=== PATIENT | female | born 1945 | race Caucasian/White ===

== ENCOUNTER 2017-03-06 16:51 | Inpatient (IN) | payer OTHER, MEDICAID ==
--- NOTE | 2017-03-06 17:23 | DR.H&P ---
H&P - History & Physical for Day of: H&P Date: 03/06/17 - Chief Complaint Chief Complaint: urinary retention, uti, fever, weakness, nausea - Allergies Allergies/Adverse Reactions: Allergies Allergy/AdvReac Type Severity Reaction Status Date / Time Codeine [Codeine] Allergy Verified 09/27/15 16:17 - History of Present Illness History of Present Illness: ppatient is a 71-year-old white female who is a very demented from Dr. Macdonald's office. Patient was treated for UTI approximately 2 weeks ago. Patient was told she had an obstruction to her right kidney. Patient was referred to a urologist she has not seen a specialist at this time. Patient states she's had a fever for several days and very weak. Patient has completed 2 rounds of antibiotics by mouth as well as Rocephin injections. plan to admit, iv atbx therapy, ct scan r/o pyelonephritis , admission labs, urine culture,. resume home medication. - Past Medical History Past Medical History: Anxiety, Arthritis, Headaches, Hypertension - Past Surgical History Surgical History: Mastectomy, Ortho Surgery - Family History Family Medical History: Diabetes Mellitus, Cancer, [place], Coronary Artery Disease, Hypertension - Social History Does patient currently use any type of tobacco product: No Have you used tobacco products in the last 12 months: No Type of Tobacco Use: None Does any household member use tobacco: No Alcohol Use: None Drug Use: None - Review of Systems Constitutional: Fever, Weakness Eyes: No Symptoms Reported ENT: No Symptoms Reported Respiratory: No Symptoms Reported Gastrointestinal: Nausea, Abdominal Pain Genitourinary: Retention Skin: No Symptoms Reported Neurological: No Symptoms Reported - Physical Exam Vital Signs: Blood Pressure [Right Arm] 142/79 Blood Pressure 142/79 Oriented: Normal Eyes: Normal Ear: Normal Nose: Normal Throat: Normal Respiratory: Clear Throughout Cardiovascular: Normal : Normal Auscultation: Bowel Sounds: Normal Palpation: Normal Tenderness: Suprapubic Skin: Normal Musculoskeletal: Back:Thoracic, Back:Lumbar Psychiatric: Normal Mood Description: Calm Speech Pattern: Clear, Appropriate - Assessment/Plan (1) UTI (urinary tract infection) Status: Acute Plan: ADMIT, BLOOD AND URINE CULTURES. CBC CMP ON ADMISSION. IV LEVAQUIN, IV NS. CT ABD PELVIS WITH CONTRAST. PAIN AND NAUSEA CONTROL (2) Fever Status: Acute (3) Flank pain Status: Acute (4) GERD (gastroesophageal reflux disease) Qualifiers: Esophagitis presence: esophagitis presence not specified Qualified Code(s) : K21.9 - Gastro-esophageal reflux disease without esophagitis Status: Chronic (5) Generalized anxiety disorder Status: Chronic (6) Hypertension Status: Chronic
[2017-03-06] MEDS ORDERED: LEVAQUIN PREMIX IV 500 MG 500 MG/100 ML BAG IV SCH ×2 (18:15→20:00)
[2017-03-06] MEDS ORDERED: ZOFRAN INJ 4 MG VIAL 16 MG, ATIVAN INJ 2 MG VIAL 1 MG, DECADRON INJ 10 MG in NS 50 ML I... IV PRN (18:15)
[2017-03-06 18:51] LABS: BASOPHILS % (AUTO) 0.3 % (0.2-1.0); EOSINOPHILS # (AUTO) 0.1 x10^3/uL (0.0-0.2); EOSINOPHILS % (AUTO) 1.2 % (0.9-2.9); HEMATOCRIT 36.9 % (36.0-47.0); HEMOGLOBIN 12.4 g/dL (12.0-16.0); LYMPHOCYTES # (AUTO) 1.9 X10^3/uL (1.3-2.9); LYMPHOCYTES % (AUTO) 28.4 % (21.0-51.0); MEAN CORPUSCULAR HGB CONC 33.6 g/dL (33.0-35.0); MEAN CORPUSCULAR VOLUME 89.3 fL (80.0-100.0); MONOCYTES # (AUTO) 0.5 x10^3/uL (0.3-0.8); MONOCYTES % (AUTO) 7.3 % (0.0-13.0); NEUTROPHILS # (AUTO) 4.2 x10^3/uL (2.2-4.8); NEUTROPHILS % (AUTO) 62.8 % (42.0-75.0); PLATELET COUNT 279 X10^3/uL (150.0-450.0); RED BLOOD COUNT 4.13 X10^6/uL (3.5-5.4); RED CELL DISTRIBUTION WIDTH 12.9 % (11.6-16.5); WHITE BLOOD COUNT 6.7 X10^3/uL (3.6-10.0)
[2017-03-06 19:04] LABS: ALBUMIN 3.3 g/dL (3.4-5.0); CALCIUM 9.3 mg/dL (8.5-10.1); COR CA(FOR HYPOALB) 9.9 mg/dL (8.5-10.1); CREATININE 1.31 mg/dL (0.55-1.02); TOTAL PROTEIN 7.3 g/dL (6.4-8.2)
[2017-03-06 20:39] VITALS: BMI 19.4
[2017-03-06] MEDS: NS 1000 ML 1,000 ML IV SCH (20:53)
[2017-03-06] MEDS ORDERED: NS 100 ML IV 100 ML IV ONE (21:53)
--- NOTE | 2017-03-06 22:48 | CT ---
CT abdomen and pelvis with contrast Indication: Urinary tract infection. Fever and right flank pain Technique: Helical images through the abdomen and pelvis after IV and oral contrast. Coronal and sagi ttal reformats provided. Findings: Limited images through the lower chest shows scarring in the lung bases. There is 5 mm left lower lobe lung nodule. 6 mm right lower lobe lung nodule seen on axial image 14. 6 mm right lower l obe nodule seen axial image 19. Calcified breast implants noted. Heart size is normal. Review of bone windows shows no destructive osseous lesion. There is pars defects at L5 with anterolisthesis of L5 with S1. Abdomen: Small right diaphragmatic posterior hernia noted. Mild thickening of the gastric antrum note d. The liver, gallbladder, spleen, pancreas, adrenal glands, and small bowel appear normal. Colonic d iverticulosis noted without acute inflammatory change. Contrast enters the colon without obstruction. Appendix is normal. Vasculature shows minimal plaque. Kidneys show no hydronephrosis or stone. Pelvis: Urinary bladder and rectum are normal. Uterus and adnexa are normal. Impression: 1. No high-grade obstruction renal stones seen. 2. Colonic diverticulosis. 3. Bilateral lung nodules. Nonemergent CT chest recommended for follow-up to further characterize. Ne oplasm cannot be excluded. 4. Mild thickening of the gastric antrum. Correlate clinically for signs of gastritis. Center follow- up with EGD non emergently. Reported By:
[2017-03-06] MEDS: RESTORIL CAP 30 MG PO PRN (23:19)
[2017-03-07 03:08] LABS: BILIRUBIN,URINE NEGATIVE (NEGATIVE); BLOOD/HEMOGLOBIN,URINE NEGATIVE (NEGATIVE); GLUCOSE, URINE NEGATIVE (NEGATIVE); KETONES,URINE NEGATIVE (NEGATIVE); LEUKOCYTE ESTERASE ,URINE 1+ (NEGATIVE); NITRITES,URINE NEGATIVE (NEGATIVE); PROTEIN,URINE NEGATIVE (NEGATIVE); UROBILINOGEN,URINE NORMAL (NORMAL)
[2017-03-07 03:12] LABS: APPEARANCE,URINE CLEAR (CLEAR); BACTERIA,URINE TRACE /HPF (NEGATIVE); COLOR,URINE PALE YELLOW (YELLOW); RBC,URINE NONE SEEN /HPF (NEGATIVE); SQUAMOUS EPITHELIAL CELL,UR RARE /HPF (NEGATIVE)
[2017-03-07 05:24] LABS: BASOPHILS % (AUTO) 0.5 % (0.2-1.0); EOSINOPHILS # (AUTO) 0.1 x10^3/uL (0.0-0.2); EOSINOPHILS % (AUTO) 2.1 % (0.9-2.9); HEMATOCRIT 34.1 % (36.0-47.0); HEMOGLOBIN 11.4 g/dL (12.0-16.0); LYMPHOCYTES # (AUTO) 1.4 X10^3/uL (1.3-2.9); LYMPHOCYTES % (AUTO) 26.3 % (21.0-51.0); MEAN CORPUSCULAR HEMOGLOBIN 29.7 pg (27.0-34.0); MEAN CORPUSCULAR HGB CONC 33.4 g/dL (33.0-35.0); MONOCYTES # (AUTO) 0.5 x10^3/uL (0.3-0.8); MONOCYTES % (AUTO) 9.6 % (0.0-13.0); NEUTROPHILS # (AUTO) 3.4 x10^3/uL (2.2-4.8); NEUTROPHILS % (AUTO) 61.5 % (42.0-75.0); PLATELET COUNT 231 X10^3/uL (150.0-450.0); RED BLOOD COUNT 3.83 X10^6/uL (3.5-5.4); RED CELL DISTRIBUTION WIDTH 12.7 % (11.6-16.5); WHITE BLOOD COUNT 5.5 X10^3/uL (3.6-10.0)
[2017-03-07 05:33] LABS: ALANINE AMINOTRANSFERASE 19 Units/L (12-78); ALBUMIN 2.7 g/dL (3.4-5.0); ALKALINE PHOSPHATASE 59 Units/L (46-116); ASPARTATE AMINO TRANSFERASE 19 Units/L (15-37); BLOOD UREA NITROGEN 16 mg/dL (7-18); CALCIUM 8.5 mg/dL (8.5-10.1); CARBON DIOXIDE 28.1 mmol/L (21-32); CHLORIDE 105 mmol/L (98-107); COR CA(FOR HYPOALB) 9.5 mg/dL (8.5-10.1); CREATININE 1.01 mg/dL (0.55-1.02); SODIUM 141 mmol/L (136-145); TOTAL PROTEIN 6.1 g/dL (6.4-8.2); eGFR BLACK RACES > 60 (>60); eGFR NON BLACK RACES 57 (>60)
[2017-03-07] MEDS: LEVAQUIN PREMIX IV 250 MG 250 MG/50 ML BAG IV SCH (08:37)
[2017-03-07] MEDS: NS 1000 ML 1,000 ML IV SCH ×3 (08:37→21:47)
[2017-03-07] MEDS: PEPCID 20 MG IV PREMIX* 20 MG/50 ML BAG IV SCH (08:37)
[2017-03-07] MEDS: PROTONIX INJ 40 MG VIAL IVP SCH ×2 (09:22→20:48)
[2017-03-07] MEDS ORDERED: DEMEROL INJ IVP PRN (09:56)
[2017-03-07] MEDS ORDERED: TYLENOL 325 MG TAB PO PRN (12:51)
[2017-03-07] MEDS: CLARITIN PO SCH (17:36)
[2017-03-07] MEDS: RESTORIL CAP 30 MG PO PRN (20:48)
[2017-03-08 05:24] LABS: BASOPHILS % (AUTO) 0.3 % (0.2-1.0); EOSINOPHILS # (AUTO) 0.1 x10^3/uL (0.0-0.2); EOSINOPHILS % (AUTO) 1.8 % (0.9-2.9); HEMOGLOBIN 10.7 g/dL (12.0-16.0); LYMPHOCYTES # (AUTO) 1.4 X10^3/uL (1.3-2.9); LYMPHOCYTES % (AUTO) 26.2 % (21.0-51.0); MEAN CORPUSCULAR HEMOGLOBIN 30.1 pg (27.0-34.0); MEAN CORPUSCULAR HGB CONC 33.5 g/dL (33.0-35.0); MEAN CORPUSCULAR VOLUME 89.9 fL (80.0-100.0); MEAN PLATELET VOLUME 8.1 fL (7.4-11.0); MONOCYTES # (AUTO) 0.5 x10^3/uL (0.3-0.8); MONOCYTES % (AUTO) 9.1 % (0.0-13.0); NEUTROPHILS # (AUTO) 3.4 x10^3/uL (2.2-4.8); NEUTROPHILS % (AUTO) 62.6 % (42.0-75.0); PLATELET COUNT 230 X10^3/uL (150.0-450.0); RED BLOOD COUNT 3.56 X10^6/uL (3.5-5.4); RED CELL DISTRIBUTION WIDTH 12.9 % (11.6-16.5); WHITE BLOOD COUNT 5.5 X10^3/uL (3.6-10.0)
[2017-03-08 05:36] LABS: ALANINE AMINOTRANSFERASE 15 Units/L (12-78); ALBUMIN 2.6 g/dL (3.4-5.0); ALKALINE PHOSPHATASE 60 Units/L (46-116); ASPARTATE AMINO TRANSFERASE 15 Units/L (15-37); BLOOD UREA NITROGEN 10 mg/dL (7-18); CALCIUM 8.4 mg/dL (8.5-10.1); CARBON DIOXIDE 25.5 mmol/L (21-32); CHLORIDE 112 mmol/L (98-107); COR CA(FOR HYPOALB) 9.5 mg/dL (8.5-10.1); CREATININE 1.02 mg/dL (0.55-1.02); SODIUM 144 mmol/L (136-145); TOTAL PROTEIN 5.8 g/dL (6.4-8.2); eGFR BLACK RACES > 60 (>60); eGFR NON BLACK RACES 57 (>60)
[2017-03-08] MEDS ORDERED: NS 100 ML IV 100 ML IV ONE (06:10)
[2017-03-08] MEDS: CLARITIN PO SCH (10:06)
[2017-03-08] MEDS: PROTONIX INJ 40 MG VIAL IVP SCH (10:06)
[2017-03-08] MEDS: LEVAQUIN PREMIX IV 250 MG 250 MG/50 ML BAG IV SCH (10:45)
[2017-03-08] MEDS: PEPCID 20 MG IV PREMIX* 20 MG/50 ML BAG IV SCH (10:46)
[2017-03-08 12:30] VITALS: BP 152/94
[2017-03-08] MEDS: NS 1000 ML 1,000 ML IV SCH (12:30)
== END 2017-03-08 13:00 | disposition home or self-care (01) | DRG 690 ==
LOC: MED/SURG 16:51
PROVIDERS: ADMIT Internal Medicine; ATTEND Internal Medicine
DX: N39.0 Urinary tract infection, site not specified (principal); R51 Headache; R53.1 Weakness; K21.9 Gastro-esophageal reflux disease without esophagitis; F41.8 Other specified anxiety disorders; I10 Essential (primary) hypertension; E86.0 Dehydration; R10.84 Generalized abdominal pain; K29.60 Other gastritis without bleeding; R94.4 Abnormal results of kidney function studies
CPT/HCPCS: 36415; 71260; 74177; 80053; 81001; 85025; 87040; 87086; A4222; C9113; S0028; J1956

== ENCOUNTER 2017-05-12 09:57 | Day surgery (SDC) | payer OTHER, MEDICAID ==
[2017-05-12] MEDS ORDERED: D5 LR 1000 ML 1,000 ML IV ONE (10:15)
[2017-05-12] MEDS ORDERED: DIPRIVAN VIAL 20 ML ONE (11:12)
[2017-05-12 11:58] VITALS: BP 121/74
== END 2017-05-12 11:55 | disposition home or self-care (01) ==
LOC: SURG1 09:57
PROVIDERS: ATTEND Internal Medicine
PROC: 0DB68ZX Excision of Stomach, Via Natural or Artificial Opening Endoscopic, Diagnostic (ICD-10-PCS; principal; 2017-05-12 11:30)
PROC: 0DJ08ZZ Inspection of Upper Intestinal Tract, Via Natural or Artificial Opening Endoscopic (ICD-10-PCS; principal; 2017-05-12 11:30)
DX: K21.9 Gastro-esophageal reflux disease without esophagitis (principal); K92.89 Other specified diseases of the digestive system; K44.9 Diaphragmatic hernia without obstruction or gangrene; K25.9 Gastric ulcer, unspecified as acute or chronic, without hemorrhage or perforation; K29.60 Other gastritis without bleeding
CPT/HCPCS: A4217; J3490; J7120

== ENCOUNTER → 2017-06-30 | Outpatient (CLI) | payer OTHER, MEDICAID ==
[~2017-06-30] MED LIST: NS 250 ML IV 250 ML IV ONE
[2017-06-30 08:32] LABS: CREATININE 0.99 mg/dL (0.55-1.02)
--- NOTE | 2017-06-30 11:29 | CT ---
HISTORY: Follow-up lung nodule Study: CT chest with contrast Comparison: 03/08/2017 Technique: Multiple axial images of the chest were obtained from the thoracic inlet to the upper abdo men after the administration of IV contrast. Dose reduction techniques including Automated Exposure Control (AEC) and adjustment of mA and kV were utilized. Findings: Stable 3 mm right upper lobe pulmonary nodule on axial image 32. Stable intrafissural lymph node in t he right upper lobe on axial image 29. Two stable 5 mm pulmonary nodules in the right lung base are s een on axial image 46 and 52. There is stable 5 mm pulmonary nodule in the left lower lobe on axial i mage 46. No vascular abnormality is identified. Normal-sized heart with coronary atherosclerotic dise ase again noted. The aorta appears normal in course and caliber. The lungs are clear without effusion , consolidation, or pneumothorax. Airways are patent. Bilateral breast implants are noted with deformity of the superior/lateral aspect of the right implan t that may reflect a chronic intracapsular rupture. The osseous structures are intact. There is a chr onic fat containing right Bochdalek hernia.. The visualized portions of the upper abdomen are grossly unremarkable. IMPRESSION: 1. Stable bilateral pulmonary nodules as described and additional chronic findings detailed above. Reported By:
== END ==
LOC: RAD 08:08
PROVIDERS: ATTEND Nurse Practitioner Family
DX: R91.8 Other nonspecific abnormal finding of lung field (principal)
CPT/HCPCS: 36415; 71260; 82565; 84520; A4222

== ENCOUNTER → 2017-09-28 | Outpatient (CLI) | payer OTHER, MEDICAID ==
--- NOTE | 2017-09-28 14:54 | CT ---
History: Follow-up lung nodule Study: CT chest without contrast Findings: [address] imaging through the chest is performed with coronal and sagittal reformatte d images submitted as well. Comparison is made to the previous study of 03/08 2017. No mediastinal or hilar mass or adenopathy is identified. Bilateral retro mammary breast implants with densely calcifi ed capsules are again noted. No mediastinal or hilar mass or adenopathy is seen. There is scattered l eft coronary artery calcification. Previously described nodule in the periphery of the left lower lob e is decreased in size in the interval measures at most 3 mm. The right lower lobe pulmonary nodule i s also decreased in size in is almost invisible on the current study. No new nodules are identified. Visualized upper abdominal structures appear unremarkable. Impression: Decrease in size of small bilateral lower lobe pulmonary nodules and no further follow-up is deemed to be necessary. Reported By:
--- NOTE | 2017-09-28 14:56 | US ---
Right breast ultrasound Indication: Ruptured silicone implant. History of mastectomy in 1993. Comparison: CT chest 09/28/2017, 03/08/2017. Technique: Sonographic images of the right breast were obtained. Findings: Breast implant is noted. There are small round shadowing foci deep to the pectoralis muscle in the axillary region, suggestive for free silicone from implant rupture. This rupture is demonstra luis on the previous CT chests. No solid or cystic mass or otherwise suspicious abnormality was demons trated. Impression: Findings of ruptured silicone implant in the upper outer quadrant/axillary region. This can be furthe r evaluated with MRI, if indicated. BI-RADS category 2 --Benign findings. Reported By:
== END | disposition home or self-care (01) | DRG 206 ==
LOC: RAD 13:23
PROVIDERS: ATTEND Nurse Practitioner Family
DX: R91.1 Solitary pulmonary nodule (principal); T85.49XA Other mechanical complication of breast prosthesis and implant, initial encounter
CPT/HCPCS: 71250; 76642

== ENCOUNTER 2018-07-24 14:44 | Observation (INO) ==
[2018-07-24] MEDS ORDERED: APRESOLINE INJ 20 MG VIAL IVP PRN (14:50)
[2018-07-24] MEDS ORDERED: ZOFRAN INJ 4 MG VIAL IVP PRN (14:50)
--- NOTE | 2018-07-24 14:55 | DR.H&P ---
H&P - History & Physical for Day of: H&P Date: 07/24/18 - Chief Complaint Chief Complaint: LEFT SIDE FACE DROOPING, WEAKNESS, JON, ELEVATED BLOOD PRESSURE - History of Present Illness History of Present Illness: 73 WF DIRECT ADMIT FROM DR GROSS OFFICE AFTER PRESENTING WITH CO LEFT SIDE FACIAL DROOP WITH BP RUNNING HIGH. PT STATED SHE NOTICED IT ON MONDAY BUT REFUSED TO GO TO ER. PT HAD HER HEAD"IS ABOUT TO BLOW OFF". PT BP IN OFFICE 224/116. PT DENIES CHEST PAIN. PT CO RIGHT CHEST WALL SORE, HAS LEAKING BREAST PROSTHESIS S/P BREAST CANCER WITH SURGERY SET UP FOR JULY. PT CO INCREASED STRESS RELATED TO PERSONAL ILLNESS AND HOME LIFE. PT HAS PMH OF HTN, OA, BILL, BREAST CA, HYPERLIPIDEMIA, C SPINE DDD. PT ADMITTED FOR HYPERTENSIVE URGENCY, R/O CVA VS TIA. - Past Medical History Past Medical History: Anxiety, Arthritis, Headaches, Hypertension Additional Medical History: HX BREAST CANCER - Past Surgical History Surgical History: Mastectomy, Ortho Surgery, Tonsillectomy - Family History Family Medical History: Diabetes Mellitus, [place], Coronary Artery Disease, Hypertension - Social History Does patient currently use any type of tobacco product: No Have you used tobacco products in the last 12 months: No Type of Tobacco Use: None Does any household member use tobacco: No Alcohol Use: None Drug Use: None - Medications Home Medications: codeine Allergy (Verified 03/06/17 19:35) prednisone Allergy (Verified 03/06/17 18:23) - Review of Systems Constitutional: Weakness Eyes: No Symptoms Reported ENT: No Symptoms Reported Respiratory: No Symptoms Reported Cardiovascular: Palpitations Gastrointestinal: Nausea Genitourinary: No Symptoms Reported Musculoskeletal: Back Pain, Neck Pain Skin: No Symptoms Reported Neurological: Weakness (LEFT SIDE FACIAL DROOP. CO LEFT LEG WEAKNESS), Other (HEADACHE, WEAKNESS) - Physical Exam Vital Signs: Blood Pressure [Left Arm] 152/94 Blood Pressure [Right Arm] 142/79 Blood Pressure 121/74 Oriented: Normal, Other (MILD LEFT SIDE MOUTH DROOP) Eyes: Normal Ear: Normal Nose: Normal Throat: Normal Respiratory: RLL Diminished, LLL Diminished Cardiovascular: Tachycardia. negative: Edema : Normal Auscultation: Bowel Sounds: Normal Palpation: Normal Tenderness: Normal Skin: Decreased Turgur Musculoskeletal: Back:Thoracic, Back:Lumbar, Tender (NECK ), Motor Deficit Psychiatric: Anxiety, Agitation Mood Description: Hostile, Anxious Affect: Anxious Speech Pattern: Appropriate, Slurred (PT NOT WEARING DENTURES, MILD SLURRED SPEECH), Excessive - Assessment/Plan (1) Hypertensive urgency Status: Acute Plan: ADMIT, ICU, SERIAL CE AND EKG. CT HEAD, CTA CAROTID. ASA, STATIN THERAPY. BP CONTROL, IV HYDRALAZINE. SUPPLEMENTAL O2, VERIFY HOME MEDICATION, PAIN AND NAUSEA CONTROL. 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
[2018-07-24] MEDS ORDERED: DUONEB 0.5 MG/3 MG NEB PRN (17:07)
[2018-07-24 17:14] LABS: BASOPHILS # (AUTO) 0.1 X10^3/uL (0.0-0.1); BASOPHILS % (AUTO) 1.3 % (0.2-1.0); EOSINOPHILS # (AUTO) 0.2 x10^3/uL (0.0-0.2); EOSINOPHILS % (AUTO) 2.7 % (0.9-2.9); HEMOGLOBIN 12.1 g/dL (12.0-16.0); LYMPHOCYTES # (AUTO) 1.8 X10^3/uL (1.3-2.9); LYMPHOCYTES % (AUTO) 27.4 % (21.0-51.0); MEAN CORPUSCULAR HGB CONC 33.8 g/dL (33.0-35.0); MEAN CORPUSCULAR VOLUME 88.8 fL (80.0-100.0); MONOCYTES # (AUTO) 0.4 x10^3/uL (0.3-0.8); MONOCYTES % (AUTO) 6.2 % (0.0-13.0); NEUTROPHILS # (AUTO) 4.2 x10^3/uL (2.2-4.8); NEUTROPHILS % (AUTO) 62.4 % (42.0-75.0); PLATELET COUNT 240 X10^3/uL (150.0-450.0); RED BLOOD COUNT 4.05 X10^6/uL (3.5-5.4); RED CELL DISTRIBUTION WIDTH 12.7 % (11.6-16.5); WHITE BLOOD COUNT 6.7 X10^3/uL (3.6-10.0)
[2018-07-24 17:31] VITALS: BMI 19.4
[2018-07-24] MEDS: NS 1000 ML 1,000 ML IV SCH (18:00)
[2018-07-24] MEDS: PEPCID 20 MG IV PREMIX* 20 MG/50 ML BAG IV SCH (18:00)
[2018-07-24 18:03] LABS: BLOOD UREA NITROGEN 23 mg/dL (7-18); CALCIUM 9.2 mg/dL (8.5-10.1); CARBON DIOXIDE 26.7 mmol/L (21-32); CHLORIDE 102 mmol/L (98-107); CREATININE 1.29 mg/dL (0.55-1.02); SODIUM 136 mmol/L (136-145); TROPONIN I < 0.02 ng/mL (0-1.5); eGFR NON BLACK RACES 43 (>60)
[2018-07-24 18:13] LABS: BILIRUBIN,URINE NEGATIVE (NEGATIVE); BLOOD/HEMOGLOBIN,URINE NEGATIVE (NEGATIVE); GLUCOSE, URINE NEGATIVE (NEGATIVE); KETONES,URINE NEGATIVE (NEGATIVE); LEUKOCYTE ESTERASE ,URINE 1+ (NEGATIVE); NITRITES,URINE NEGATIVE (NEGATIVE); PROTEIN,URINE NEGATIVE (NEGATIVE); UROBILINOGEN,URINE NORMAL (NORMAL)
[2018-07-24 18:15] LABS: APPEARANCE,URINE CLEAR (CLEAR); COLOR,URINE YELLOW (YELLOW)
[2018-07-24 18:16] LABS: ALANINE AMINOTRANSFERASE 17 Units/L (12-78); ALBUMIN 3.3 g/dL (3.4-5.0); ALKALINE PHOSPHATASE 96 Units/L (46-116); ASPARTATE AMINO TRANSFERASE 17 Units/L (15-37); CKMB % 2.9 % (<4); COR CA(FOR HYPOALB) 9.8 mg/dL (8.5-10.1); CREATINE KINASE 35 Units/L (26-192); CREATINE KINASE MB < 1.0 ng/mL (0-4.0); MAGNESIUM 1.9 mg/dL (1.7-2.9); TOTAL PROTEIN 6.7 g/dL (6.4-8.2)
[2018-07-24 18:20] LABS: BACTERIA,URINE TRACE /HPF (NEGATIVE); RBC,URINE 0-2 /HPF (NONE SEEN); SQUAMOUS EPITHELIAL CELL,UR FEW /HPF (NEGATIVE)
--- NOTE | 2018-07-24 19:54 | RAD ---
HISTORY: High blood pressure Study: PA and lateral views of the chest Comparison: 09/28/2017 Findings: There are bilateral breast implants in place. No infiltrate, effusion or pneumothorax identified. The cardiac and mediastinal contours are within normal limits. The soft tissues are unremarkable a partially visualized hardware in the cervical spine.. IMPRESSION: 1. No acute cardiopulmonary abnormality. Reported By:
--- NOTE | 2018-07-24 19:55 | CT ---
CT brain without contrast Indication: Elevated blood pressure Comparison: None available Technique: Multiple axial images of the brain were obtained from the skull base to the vertex without administration of IV contrast. Findings: Mild generalized cerebral atrophy. Stable mild bilateral periventricular deep white matter hypoattenuation. No acute intraparenchymal hemorrhage or mass can be identified. No extra-axial fluid collections are seen. No alteration in the attenuation of the brain parenchyma can be identified to suggest acute or subacute ischemic change. The ventricular system is symmetric and nondilated. The extracranial structures are grossly unremarkable. IMPRESSION: No acute intracranial hemorrhage. Stable generalized cerebral atrophy with mild bilateral periventricular and deep white matter hypoattenuation likely in the setting of chronic microvascular ischemic disease. Reported By:
[2018-07-24] MEDS: COLACE CAP 100 MG PO SCH (21:00)
[2018-07-24] MEDS: CRESTOR TAB 10 MG PO SCH (21:00)
[2018-07-24 21:35] LABS: CKMB % 3.2 % (<4); CREATINE KINASE 31 Units/L (26-192); CREATINE KINASE MB < 1.0 ng/mL (0-4.0); TROPONIN I < 0.02 ng/mL (0-1.5)
[2018-07-24] MEDS ORDERED: RESTORIL CAP 15 MG PO PRN (22:19)
[2018-07-25 03:13] LABS: BASOPHILS % (AUTO) 0.7 % (0.2-1.0); EOSINOPHILS # (AUTO) 0.3 x10^3/uL (0.0-0.2); EOSINOPHILS % (AUTO) 5.1 % (0.9-2.9); HEMOGLOBIN 11.6 g/dL (12.0-16.0); LYMPHOCYTES # (AUTO) 1.8 X10^3/uL (1.3-2.9); LYMPHOCYTES % (AUTO) 36.8 % (21.0-51.0); MEAN CORPUSCULAR HEMOGLOBIN 29.6 pg (27.0-34.0); MEAN CORPUSCULAR HGB CONC 33.3 g/dL (33.0-35.0); MEAN CORPUSCULAR VOLUME 89.1 fL (80.0-100.0); MEAN PLATELET VOLUME 7.8 fL (7.4-11.0); MONOCYTES # (AUTO) 0.5 x10^3/uL (0.3-0.8); MONOCYTES % (AUTO) 9.2 % (0.0-13.0); NEUTROPHILS # (AUTO) 2.4 x10^3/uL (2.2-4.8); NEUTROPHILS % (AUTO) 48.2 % (42.0-75.0); PLATELET COUNT 214 X10^3/uL (150.0-450.0); RED BLOOD COUNT 3.93 X10^6/uL (3.5-5.4); RED CELL DISTRIBUTION WIDTH 12.5 % (11.6-16.5)
[2018-07-25 03:34] LABS: ALANINE AMINOTRANSFERASE 18 Units/L (12-78); ALKALINE PHOSPHATASE 93 Units/L (46-116); ASPARTATE AMINO TRANSFERASE 16 Units/L (15-37); BLOOD UREA NITROGEN 18 mg/dL (7-18); CALCIUM 8.7 mg/dL (8.5-10.1); CARBON DIOXIDE 28.1 mmol/L (21-32); CHLORIDE 107 mmol/L (98-107); COR CA(FOR HYPOALB) 9.5 mg/dL (8.5-10.1); CREATINE KINASE 25 Units/L (26-192); CREATINE KINASE MB < 1.0 ng/mL (0-4.0); CREATININE 1.12 mg/dL (0.55-1.02); SODIUM 142 mmol/L (136-145); TOTAL PROTEIN 6.2 g/dL (6.4-8.2); TROPONIN I < 0.02 ng/mL (0-1.5); eGFR NON BLACK RACES 51 (>60)
[2018-07-25] MEDS: PERCOCET TAB 5/325 MG PO PRN ×2 (07:26→13:58)
[2018-07-25] MEDS ORDERED: LEXAPRO ONE ×2 (09:36→09:56)
[2018-07-25] MEDS: PEPCID 20 MG IV PREMIX* 20 MG/50 ML BAG IV SCH (09:53)
[2018-07-25] MEDS: LEXAPRO PO SCH (09:53)
[2018-07-25] MEDS: PROTONIX TAB 40 MG PO SCH (09:54)
[2018-07-25] MEDS: ZESTRIL TAB 10 MG PO SCH (09:54)
[2018-07-25] MEDS: KLONOPIN TAB 1 MG PO SCH ×2 (09:54→20:05)
[2018-07-25] MEDS: INDERAL TAB 10 MG PO SCH (09:57)
--- NOTE | 2018-07-25 10:08 | CT ---
HISTORY: Hypertensive urgency and weakness. Study: CTA carotids with/without contrast Comparison: None. Technique: Multiple axial images of the carotids before and after the administration of IV contrast. Sagittal and coronal reformats were performed and reviewed. 3D reformats/MIP images were performed. Dose reduction techniques including Automated Exposure Control (AEC) and adjustment of mA and kV were utilized. Findings: Near complete opacification of the left sphenoid sinus. Remaining visualized paranasal sinuses and mastoid air cells are clear. Otherwise, the visualized portions of the posterior fossa and orbits are unremarkable in appearance. The parotid glands and submandibular glands are unremarkable in their contrast appearance. Partially calcified 9 mm right thyroid lobe nodule. The carotid space on the right and left is unremarkable. No mass or significant lymphadenopathy can be identified. The prevertebral and paraspinous regions are unremarkable. The nasopharynx, oropharynx, hypopharynx are unremarkable. The larynx appears symmetric. Dominant right vertebral artery. Normal basilar artery. Diminutive left vertebral artery that is lost at the foramen transversarium of C2 and is reconstituted by collaterals within the inferior portion of the foramen transversarium of C3. The remainder of the left vertebral artery is patent to the level of the aortic arch. Mild calcification at the bilateral carotid bulbs without significant stenosis. Remaining vascular structures are unremarkable. Biapical scarring. Mild centrilobular and paraseptal emphysematous changes. Remaining lung apices and mediastinum are unremarkable. Patient is status post anterior cervical fusion of C5 through C6 with associated disc spacers. The visualized hardware is unremarkable. Other degenerative changes of the spine. No aggressive osseous lesions. IMPRESSION: 1. No significant stenosis of the bilateral carotid arteries. 2. 9 mm right thyroid lobe nodule. Recommend dedicated thyroid ultrasound for further characterization. 3. Other chronic findings as above. Reported By:
--- NOTE | 2018-07-25 11:54 | PCM.PROG ---
Progress Note - Progress Note for Day of Date of Exam: 07/25/18 - Subjective Subjective: 73 WF ADMITTED ON 07/24 WITH CO HYPERTENSIVE URGENCY WITH BP IN OFFICE 220'S/116. PT TOOK HER HOME BLOOD PRESSURE MEDICATION, BUT WAS CO LEFT FACIAL DROOP AND DIZZINESS. PT CO EXERTIONAL SOB. PT HAD CT HEAD WITHOUT ACUTE FINDINGS, PT NPO FOR CTA THIS AM. PT CARDIAC ENZYMES AND EKG REVIEWED WITH PT. PT CO CONTINUED TROUBLE TALKING THIS AM, PT IS NOT WEARING DENTURES MAY BE CAUSE OF IMPAIRED SPEECH. PT BP STABLE THIS AM, WILL ADD DDIMER, CTA PENDING AND CONTINUE BP MONITORING. - Past Medical Family Social History Past Med/Fam/Surg Hx: No changes since H&P Allergies: Allergies codeine Allergy (Verified 03/06/17 19:35) prednisone Allergy (Verified 03/06/17 18:23) - Review of Systems ROS: No change since H&P - Vital Signs and I&O's Vital Signs: Temperature 98.6 F Pulse Rate [Right Brachial] 62 Pulse Rate 74 Respiratory Rate 28 Blood Pressure [Left Arm] 152/94 Blood Pressure [Right Arm] 140/74 Blood Pressure 143/85 O2 Sat by Pulse Oximetry 97 Intake and Output: Intake & Output 07/22/18 07/23/18 07/24/18 07/25/18 11:59 11:59 11:59 11:59 Intake Total 615 / 615 Output Total 900 / 900 Balance -285 / -285 - Physical Exam Oriented: Normal, Other (MILD LEFT SIDE MOUTH DROOP) Eyes: Normal Ear: Normal Nose: Normal Throat: Normal Respiratory: Diminished Cardiovascular: Tachycardia. negative: Edema : Normal Auscultation: Bowel Sounds: Normal Tenderness: Normal Skin: Decreased Turgur Musculoskeletal: Back:Thoracic, Back:Lumbar, Tender (NECK ), Motor Deficit Psychiatric: Anxiety, Agitation Mood Description: Hostile, Anxious Affect: Anxious Speech Pattern: Clear, Appropriate - Laboratory and Diagnostics Result Diagrams: 07/25/18 03:03 07/25/18 03:03 Labs: Laboratory WBC 5.0 X10^3/uL (3.6-10.0) 07/25/18 03:03 RBC 3.93 X10^6/uL (3.5-5.4) 07/25/18 03:03 Hgb 11.6 g/dL (12.0-16.0) L 07/25/18 03:03 Hct 35.0 % (36.0-47.0) L 07/25/18 03:03 MCV 89.1 fL (80.0-100.0) 07/25/18 03:03 MCH 29.6 pg (27.0-34.0) 07/25/18 03:03 MCHC 33.3 g/dL (33.0-35.0) 07/25/18 03:03 RDW 12.5 % (11.6-16.5) 07/25/18 03:03 Plt Count 214 X10^3/uL (150.0-450.0) 07/25/18 03:03 MPV 7.8 fL (7.4-11.0) 07/25/18 03:03 Neut % (Auto) 48.2 % (42.0-75.0) 07/25/18 03:03 Lymph % (Auto) 36.8 % (21.0-51.0) 07/25/18 03:03 [place] % (Auto) 9.2 % (0.0-13.0) 07/25/18 03:03 Eos % (Auto) 5.1 % (0.9-2.9) H 07/25/18 03:03 Baso % (Auto) 0.7 % (0.2-1.0) 07/25/18 03:03 Neut # (Auto) 2.4 x10^3/uL (2.2-4.8) 07/25/18 03:03 Lymph # (Auto) 1.8 X10^3/uL (1.3-2.9) 07/25/18 03:03 [place] # (Auto) 0.5 x10^3/uL (0.3-0.8) 07/25/18 03:03 Eos # (Auto) 0.3 x10^3/uL (0.0-0.2) H 07/25/18 03:03 Baso # (Auto) 0.0 X10^3/uL (0.0-0.1) 07/25/18 03:03 Absolute Nucleated RBC 0.1 /100WBC 07/25/18 03:03 Sodium 142 mmol/L (136-145) 07/25/18 03:03 Corrected Sodium TNP 07/25/18 03:03 Potassium 3.8 mmol/L (3.5-5.1) 07/25/18 03:03 Chloride 107 mmol/L (98-107) 07/25/18 03:03 Carbon Dioxide 28.1 mmol/L (21-32) 07/25/18 03:03 BUN 18 mg/dL (7-18) 07/25/18 03:03 Creatinine 1.12 mg/dL (0.55-1.02) H 07/25/18 03:03 Est GFR (MDRD) Af Amer > 60 (>60) 07/25/18 03:03 Est GFR (MDRD) Non-Af 51 (>60) L 07/25/18 03:03 Glucose 87 mg/dL (65-99) 07/25/18 03:03 Calcium 8.7 mg/dL (8.5-10.1) 07/25/18 03:03 Corrected Calcium 9.5 mg/dL (8.5-10.1) 07/25/18 03:03 Magnesium 1.9 mg/dL (1.7-2.9) 07/24/18 17:29 Total Bilirubin 0.40 mg/dL (0.2-1.0) 07/25/18 03:03 AST 16 Units/L (15-37) 07/25/18 03:03 ALT 18 Units/L (12-78) 07/25/18 03:03 Alkaline Phosphatase 93 Units/L (46-116) 07/25/18 03:03 Creatine Kinase 25 Units/L (26-192) L 07/25/18 03:03 CK-MB (CK-2) < 1.0 ng/mL (0-4.0) 07/25/18 03:03 CK/CKMB % Calc 4.0 % (<4) 07/25/18 03:03 Troponin I < 0.02 ng/mL (0-1.5) 07/25/18 03:03 Total Protein 6.2 g/dL (6.4-8.2) L 07/25/18 03:03 Albumin 3.0 g/dL (3.4-5.0) L 07/25/18 03:03 Globulin 3.2 g/dL (2.5-4.5) 07/25/18 03:03 Albumin/Globulin Ratio 0.9 Ratio (1.1-2.1) L 07/25/18 03:03 Specimen Type Clean catch urine 07/24/18 18:05 Urine Color Yellow (YELLOW) 07/24/18 18:05 Urine Appearance Clear (CLEAR) 07/24/18 18:05 Urine pH 6.0 (5.0 - 8.0) 07/24/18 18:05 Ur Specific [place] 1.010 (1.000-1.030) 07/24/18 18:05 Urine Protein Negative (NEGATIVE) 07/24/18 18:05 Urine Glucose (UA) Negative (NEGATIVE) 07/24/18 18:05 Urine Ketones Negative (NEGATIVE) 07/24/18 18:05 Urine Occult Blood Negative (NEGATIVE) 07/24/18 18:05 Urine Nitrite Negative (NEGATIVE) 07/24/18 18:05 Urine Bilirubin Negative (NEGATIVE) 07/24/18 18:05 Urine Urobilinogen Normal (NORMAL) 07/24/18 18:05 Ur Leukocyte Esterase 1+ (NEGATIVE) 07/24/18 18:05 Urine RBC 0-2 /HPF (NONE SEEN) 07/24/18 18:05 Urine WBC 0-2 /HPF (NONE SEEN) 07/24/18 18:05 Ur Squamous Epith Cells Few /HPF (NEGATIVE) 07/24/18 18:05 Urine Bacteria Trace /HPF (NEGATIVE) 07/24/18 18:05 Ur Culture Indicated? No/not indicated 07/24/18 18:05 Urine Opiates Screen Negative (NEG=<300) 07/24/18 18:05 Urine Methadone Screen Negative (NEG=<300) 07/24/18 18:05 Ur Barbiturates Screen Negative (NEG=<200) 07/24/18 18:05 Ur Phencyclidine Scrn Negative (NEG=<25) 07/24/18 18:05 Ur Amphetamines Screen Negative (NEG=<1000) 07/24/18 18:05 U Benzodiazepines Scrn Negative (NEG=<200) 07/24/18 18:05 Urine Cocaine Screen Negative (NEG=<300) 07/24/18 18:05 U Marijuana (THC) Screen Negative (NEG=<50) 07/24/18 18:05 - Plan (1) Hypertensive urgency Status: Acute Plan: ICU, SERIAL CE AND EKG. CT HEAD ON ADMISSION, CTA CAROTID PENDING. ASA, STATIN THERAPY. BP CONTROL, IV HYDRALAZINE. SUPPLEMENTAL O2, VERIFY HOME MEDICATION, PAIN AND NAUSEA CONTROL. 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
[2018-07-25 12:21] LABS: FREE T4 (FREE THYROXINE) 1.15 ng/dL (0.76-1.46); TSH (3RD GENERATION) 0.764 uIU/mL (0.358-3.74)
[2018-07-25 13:29] LABS: ABG BASE EXCESS -0.2 mmol/L (-2.0-2.0)
[2018-07-25 13:30] LABS: ABG ALLEN TEST POS
[2018-07-25] MEDS: NS 1000 ML 1,000 ML IV SCH (15:46)
--- NOTE | 2018-07-25 17:57 | US ---
History: Thyroid nodule Exam: Thyroid ultrasound Comparison: None Technique: Multiple grayscale and color flow Doppler images of the thyroid gland were obtained. Findings: The right lobe measures 3.8 x 1.4 x 1.5 cm. The left lobe measures 3 x 1.4 x 1.3 cm. There are several hypoechoic nodules scattered in the right lobe with the largest measuring 9 x 8 mm . This nodule may be partially calcified with shadowing posteriorly. There are several solid nodules scattered in the left lobe with the largest measuring 10 x 7 mm inferiorly. The isthmus measures 1.3 mm IMPRESSION: Mild multinodular goiter with the largest is a partially calcified 9 mm nodule on the right and a 10 mm solid nodule on the left. Suggest follow-up to assure long-term stability. Reported By:
[2018-07-25] MEDS: COLACE CAP 100 MG PO SCH (20:05)
[2018-07-25] MEDS: CRESTOR TAB 10 MG PO SCH (20:05)
[2018-07-25] MEDS ORDERED: INDERAL TAB 10 MG PO SCH (21:00)
[2018-07-26 05:21] LABS: BASOPHILS % (AUTO) 0.3 % (0.2-1.0); EOSINOPHILS # (AUTO) 0.3 x10^3/uL (0.0-0.2); EOSINOPHILS % (AUTO) 4.1 % (0.9-2.9); HEMATOCRIT 35.3 % (36.0-47.0); HEMOGLOBIN 11.6 g/dL (12.0-16.0); LYMPHOCYTES # (AUTO) 1.5 X10^3/uL (1.3-2.9); MEAN CORPUSCULAR HEMOGLOBIN 29.8 pg (27.0-34.0); MEAN CORPUSCULAR HGB CONC 32.9 g/dL (33.0-35.0); MEAN CORPUSCULAR VOLUME 90.6 fL (80.0-100.0); MEAN PLATELET VOLUME 8.4 fL (7.4-11.0); MONOCYTES # (AUTO) 0.4 x10^3/uL (0.3-0.8); MONOCYTES % (AUTO) 5.5 % (0.0-13.0); NEUTROPHILS # (AUTO) 4.3 x10^3/uL (2.2-4.8); NEUTROPHILS % (AUTO) 67.1 % (42.0-75.0); PLATELET COUNT 215 X10^3/uL (150.0-450.0); RED CELL DISTRIBUTION WIDTH 12.7 % (11.6-16.5); WHITE BLOOD COUNT 6.4 X10^3/uL (3.6-10.0)
[2018-07-26 05:34] LABS: ALANINE AMINOTRANSFERASE 17 Units/L (12-78); ALKALINE PHOSPHATASE 95 Units/L (46-116); ASPARTATE AMINO TRANSFERASE 15 Units/L (15-37); BLOOD UREA NITROGEN 18 mg/dL (7-18); CALCIUM 8.7 mg/dL (8.5-10.1); CARBON DIOXIDE 26.1 mmol/L (21-32); CHLORIDE 105 mmol/L (98-107); COR CA(FOR HYPOALB) 9.5 mg/dL (8.5-10.1); CREATININE 1.19 mg/dL (0.55-1.02); SODIUM 140 mmol/L (136-145); TOTAL PROTEIN 6.2 g/dL (6.4-8.2); eGFR NON BLACK RACES 47 (>60)
[2018-07-26] MEDS ORDERED: TORADOL 15 MG VIAL IVP ONE (08:55)
[2018-07-26] MEDS ORDERED: LEXAPRO ONE (09:53)
[2018-07-26] MEDS ORDERED: K-DUR TAB 20 MEQ PO PRN (09:57)
[2018-07-26] MEDS ORDERED: POTASSIUM CHL 40 MEQ/NS 0.45% 500 ML IV PRN (09:57)
[2018-07-26] MEDS ORDERED: MICRO K EXTEN CAP 10 MEQ PO PRN (09:57)
[2018-07-26] MEDS ORDERED: KLOR-CON PO PRN (09:57)
[2018-07-26] MEDS ORDERED: POTASSIUM CHL 60 MEQ/NS 0.45% 500 ML IV PRN (09:57)
[2018-07-26] MEDS ORDERED: POTASSIUM CHLORIDE LIQ 20 MEQ UDC PO PRN (09:57)
[2018-07-26] MEDS ORDERED: K-RIDER 10 MEQ/NS 100 ML 10 MEQ/100 ML BAG IV PRN (09:57)
[2018-07-26] MEDS: PROTONIX TAB 40 MG PO SCH (10:15)
[2018-07-26] MEDS: ZESTRIL TAB 10 MG PO SCH (10:15)
[2018-07-26] MEDS: INDERAL TAB 10 MG PO SCH (10:15)
[2018-07-26] MEDS: PEPCID 20 MG IV PREMIX* 20 MG/50 ML BAG IV SCH (10:16)
[2018-07-26] MEDS: KLONOPIN TAB 1 MG PO SCH (10:17)
[2018-07-26] MEDS: LEXAPRO PO SCH (10:17)
--- NOTE | 2018-07-26 10:18 | CT ---
HISTORY: Elevated D-dimer Study: CTA chest with contrast for pulmonary embolus Comparison: 09/28/2017, 03/08/2017 there is a 5.8 mm right lower lobe pulmonary nodule also unchanged since 03/08/2017. A 5 mm left lower lobe pulmonary nodule is visualized series 5, image 72 and has decreased since the prior examination. No other nodules infiltrates or masses are identified. There is some pleuro parenchymal scarring in the right lung base. Technique: Axial post-contrast images with coronal and sagittal reformats. Dose reduction procedures were used with mA/kv adjusted for body size. Findings: There is no evidence for acute pulmonary thromboembolic disease. Examination of the mediastinum demonstrated no evidence for mediastinal masses, enlarged mediastinal or enlarged hilar adenopathy. The thoracic aorta is is not dilated. No pleural effusions are identified. No chest wall or axillary abnormality is identified. Those portions of the upper abdominal organs visualized were within normal limits. Examination of the lung brewer demonstrated a 6 mm right upper lobe pulmonary nodule best visualized on series 5, image 45 unchanged since 03/08/2017 IMPRESSION: No evidence for acute pulmonary thromboembolic disease Bilateral noncalcified pulmonary nodules stable or decreasing in size since 03/08/2017. One additional follow-up examination in February of 2019 will be required to document 2 years stability and benignity. Reported By:
[2018-07-26 10:43] VITALS: BP 151/72
== END 2018-07-26 11:10 | disposition home or self-care (01) ==
LOC: INTOOBSV 16:23 → ICU 16:23
PROVIDERS: ADMIT Internal Medicine; ATTEND Internal Medicine
DX: R79.1 Abnormal coagulation profile; I16.0 Hypertensive urgency; R29.810 Facial weakness; F32.89 Other specified depressive episodes; R26.89 Other abnormalities of gait and mobility; R53.1 Weakness; Z79.899 Other long term (current) drug therapy; M47.896 Other spondylosis, lumbar region; Z85.3 Personal history of malignant neoplasm of breast; K21.9 Gastro-esophageal reflux disease without esophagitis; Z90.11 Acquired absence of right breast and nipple; E04.2 Nontoxic multinodular goiter; R51 Headache; R29.6 Repeated falls
CPT/HCPCS: 36415; 36600; 70450; 70498; 71020; 71046; 71275; 76536; 80053; 80307; 81001; 82550; 82553; 82803; 83735; 84439; 84443; 84481; 84484; 85025; 85378; 93005; 96367; 96374; 97161; A4222; S0028; G0378; G0434; J1885; J7030